=== PATIENT | female | born 1935 | race Caucasian/White ===

== ENCOUNTER 2021-05-17 12:50 | Emergency (ER) | payer MEDICARE ==
[~2021-05-17] VITALS: Ht 154.9 cm; Wt 61.7 kg
[2021-05-17] MEDS ORDERED: HYDROCODONE/APAP 5-325MG TABLET PO ONE (13:00)
--- NOTE | 2021-05-17 13:00 | NUR ---
at bedside for assessment
--- NOTE | 2021-05-17 13:09 | NUR ---
patient left for CT at this time
[2021-05-17] MEDS ORDERED: TDAP DIPH,PERTUSS,TET VAC/PF 0.5 ML DISP.SYRIN IM ONE ×2 (13:15→13:19)
[2021-05-17] MEDS ORDERED: HYDROCODONE/APAP 5-325MG TABLET ONE (13:18)
--- NOTE | 2021-05-17 13:20 | NUR ---
patient returned from CT at this time
--- NOTE | 2021-05-17 13:25 | NUR ---
Facial and lacerations cleansed with Normal saline at this time, no signs of acute distress noted
--- NOTE | 2021-05-17 14:00 | NUR ---
Right arm and shoulder placed in sling
[2021-05-17] MEDS ORDERED: IBUP-1955 PO (14:46)
[2021-05-17] MEDS ORDERED: HYDR-3972 PO (14:46)
--- NOTE | 2021-05-17 15:05 | NUR ---
Patient discharged to home in stable condition. Left with . Instructed not to drive. Written and verbal after care instructions given. Patient verbalizes understanding of instructions. Stressed follow up or return to ER for worsening s/s.
[2021-05-20 10:36] VITALS: BP 127/73
== END 2021-05-17 16:00 | disposition home or self-care (01) ==
LOC: ER 12:50
DX: S09.90XA Unspecified injury of head, initial encounter (principal); S16.1XXA Strain of muscle, fascia and tendon at neck level, initial encounter; S00.81XA Abrasion of other part of head, initial encounter; S43.401A Unspecified sprain of right shoulder joint, initial encounter; W01.0XXA Fall on same level from slipping, tripping and stumbling without subsequent striking against object, initial encounter; Y93.01 Activity, walking, marching and hiking; Y92.480 Sidewalk as the place of occurrence of the external cause; M50.31 Other cervical disc degeneration, high cervical region
CPT/HCPCS: 70450; 70486; 71045; 72125; 73030; 73060; 90715; A4217; A4663; J7030